=== PATIENT | female | born 1970 | race Caucasian/White ===

== ENCOUNTER 2021-01-12 06:50 | Day surgery (SDC) | payer MEDICAID ==
[2021-01-11 13:03] LABS: EOSINOPHILS 2.9 % (0-7); HEMATOCRIT 42.4 % (36.0-48.0); HEMOGLOBIN 13.7 g/dL (12-16); LYMPHOCYTES 29.3 % (15-50); MCH 29.5 pg (26.0-34.0); MCHC 32.3 g/dL (31.0-37.0); MCV 91.5 fL (80.0-100.0); MONOCYTES 8.3 % (2-11); NEUTROPHILS 58.5 % (40-80); PLATELET COUNT 263 10x3/uL (130-400); RBC 4.64 10x6/uL (4.00-5.40); RDW 16.1 % (11.5-14.5); WBC 7.8 10x3/uL (4.8-10.8)
[2021-01-11 13:08] LABS: CALC OSMOLALITY 277 mosm/kg (275-300); CALCIUM 9.4 mg/dL (8.5-10.1); CARBON DIOXIDE 32.2 mmol/L (21.0-32.0); CHLORIDE - SERUM 102 mmol/L (98-107); CREATININE - SERUM 0.7 mg/dL (0.6-1.3); GLUCOSE 111 mg/dL (74-106); POTASSIUM - SERUM 4.1 mmol/L (3.5-5.1); SODIUM 139 mmol/L (136-145); UREA NITROGEN 11 mg/dL (7-18); eGFR NON AFRICAN AMERICAN > 90 mL/min (90-120)
[~2021-01-12] VITALS: Ht 157.5 cm; Wt 90.7 kg
--- NOTE | ~2021-01-12 | OP ---
PATIENT NAME: CHERELLE MERCEDES MEDICAL RECORD: [id number] :68 LOCATION:[facility] ADMISSION DATE: SURGEON: JOSE TAYLOR MD DATE OF OPERATION: 01/12/2021 PREOPERATIVE DIAGNOSES: 1. Right shoulder pain/impingement. 2. Rotator cuff tear. POSTOPERATIVE DIAGNOSES: 1. Right shoulder pain/impingement. 2. Rotator cuff tear. PROCEDURE PERFORMED: Right shoulder scope with SAD, DCE, limited glenohumeral debridement and mini open rotator cuff repair. INDICATIONS FOR THE PROCEDURE: Ms. Mercedes is a 50-year-old female with history of right shoulder pain and limited mobility. MRI shows evidence of rotator cuff tear. She has elected to proceed with surgery for rotator cuff repair. Risks, benefits and alternatives of surgery were discussed with the patient including but not limited to pain, infection, bleeding, damage to surrounding structures, shoulder stiffness, and potential need for further surgery. All questions were answered and consent was obtained. DESCRIPTION OF THE PROCEDURE: The patient was met in the holding area where her identity and confirmation of procedure was performed. She was then taken to the operating room where she was placed supine on the operating table, and anesthesia was administered. She was then positioned in the left lateral decubitus position and extremities were positioned and padded appropriately. The right upper extremity was prepped and draped in a sterile fashion. The patient received preoperative antibiotics and a timeout was performed before initiating the case. On initiation of the case, the subacromial space was infiltrated with 20 mL of 0.25% Marcaine with epinephrine. We then placed our posterior portal and inserted the camera into the shoulder. Her anterior portal was placed through the rotator cuff interval under direct visualization. Diagnostic shoulder arthroscopy was performed. There was significant inflammation within the shoulder. There was some fraying at the superior labrum. There was a tear at the undersurface of the anterior to mid rotator cuff. The biceps tendon was intact. The cartilage was in good condition. Limited glenohumeral debridement was performed at the superior labrum and the undersurface of the rotator cuff. Before and after images were obtained. We then moved to the subacromial space. There was extensive inflammation and thickening of the bursa in the subacromial space. There was also under spur of the distal clavicle. A lateral portal was placed to assist with subacromial decompression. Using a cautery and a shaver, the bursal tissue was debrided. A bur was used to smooth the undersurface of the acromion. Cautery and a bur was also used to perform a distal clavicle excision. Before and after images were obtained. The footprint of the rotator cuff was then identified where the tear was located at the anterior portion. The footprint was debrided using cautery and a bur. We then converted to a mini open procedure. Lateral incision was extended. Deltoid was split. We dissected down to the subdeltoid space and were easily able to identify the rotator cuff tear. Tissue from around this area was debrided. The footprint was also debrided. Two Faustino speed anchors were placed and pulled tension to secure the anchor. One strand of each was used to pass through the rotator cuff. These were then brought down in a OPERATIVE REPORT [id number] CHERELLE MERCEDES technique and secured to the lateral row with the ReelX anchor. This provided good repair and tensioning of our rotator cuff. This was then covered with a [employer]hew Regeneten patch and the tendon and bone anchors were applied. This completed our repair. Final images were obtained. The wound was irrigated thoroughly with saline. The deltoid fascia was closed with a running Vicryl suture. Subcutaneous tissue was closed with Vicryl and the skin was closed with nylon. A sterile dressing was placed. The patient was turned back over to anesthesia where she was awakened and taken to recovery room in stable condition. POSTOPERATIVE PLAN: The patient is going to return home with her family today. She needs to remain in a sling at all times with instructions for no shoulder range of motion. We will see her back in clinic in 2 weeks. COMPLICATIONS: None. ESTIMATED BLOOD LOSS: 10 mL. ANESTHESIA: General with peripheral nerve block. TRANSINT:[id number] Voice Confirmation ID: [id number] DOCUMENT ID: [id number] JOSE TAYLOR MD CC: [id number] DICTATION DATE: 01/12/21 1145 ROD POINTER: 01/12/21 1215 [place] [id number]
[~2021-01-12 06:50] MED LIST: AMBIEN10 MG PO; BUSPAR 15 MG TA15 MG PO; CLONIDINE HCL0.2 MG PO; CYCLOBENZAPRINE10 MG PO; HCTZ25 MG PO; LATUDA40 MG PO; LEXAPRO20 MG PO; LISINOPRIL-HCT1 EAC7 PO; ULTRAM50 MG; XANAX0.25 MG PO
[2021-01-12 08:00] VITALS: BP 119/51; Ht 157.5 cm; Wt 90.7 kg
--- NOTE | 2021-01-12 13:42 | NUR ---
1237 PT IS NOT ABLE TO WIGGLE DIGITS ON RIGHT HAND. STATES HER FINGERS FEEL NUMB. 1307 PT C/O HAVING DIFFICULY BREATHING. STATES SHE CANNOT GET A DEEP BREATH. OXYGEN SATURATION FLUCTUATES BETWEEN 85% TO 94% BNC 2L/MIN PUT ON PT. ANESTHESIA NOTIFIED AND WAITING FOR SOMEONE TO EVALUATE PT. 1309 BBS EQUAL. NO WHEEZING NOTED. PERRY AVELAR CRNA AT BEDSIDE. 1312 PERRY AVELAR CRNA DC'D PT'S BNC TO SEE WHAT HER SATURATIONS WOULD BE ON RA. O2 SAT WENT FROM 99% TO 95% PT STILL C/O NOT BEING ABLE TO TAKE A DEEP BREATH. PERRY EXPLAINED TO PT THAT HER PHRENIC NERVE MIGHT BE THE REASON FOR HER FEELING LIKE SHE IS HAVING A HARD TIME TAKING A DEEP BREATH DUE TO THE BLOCK THAT SHE RECEIVED ON HER RIGHT SHOULDER PREOPERATIVELY. PT SEEMS SATISFIED WITH PERRY' EXPLANATION. SHE CONTINUES TO BE VERY SLEEPY. BNC 2L PUT BACK ON PT SO THAT SHE DOESN'T FEEL LIKE SHE IS STUGGLING FOR AIR. DUE TO THE BLOCK GIVEN EARLIER ON HER RIGHT SHOULDER.
--- NOTE | 2021-01-12 16:22 | NUR ---
1407 PT RESTING COMFORTABLY BUT STILL VERY SLEEPY. RESPIRATIONS UNLABORED AND EVEN ON BNC 1L/MIN 1450 BNC DC'D. 1510 PT MAINTAINING OXYGEN SATURATION ABOVE 95% 1515 IV DC'D. CATHETER TIP INTACT. NO BLEEDING AT SITE. COBAN DRESSING APPLIED. 1545 PT DRESSED AND HAS BEEN EDUCATED ON PROPER USE OF ARM SLING. DISCHARGE INSTRUCTIONS WERE REVIEWED WITH PT AND HER FIANCE WHO BOTH VOICE UNDERSTANDING OF INSTRUCTIONS. PT FULLY AWAKE AND READY TO GO HOME. NO C/O BREATHING DIFFICULTY. HAS MAINTAINED GOOD OXYGEN SATURATIONS.
== END 2021-01-12 15:45 | disposition home or self-care (01) ==
LOC: D.OPS 06:50
PROVIDERS: Anesthesiology; ATTEND Orthopaedic Surgery
DX: M25.511 Pain in right shoulder (principal); M75.41 Impingement syndrome of right shoulder; M75.121 Complete rotator cuff tear or rupture of right shoulder, not specified as traumatic; M13.811 Other specified arthritis, right shoulder